=== PATIENT | female | born 1970 | race Caucasian/White ===

== ENCOUNTER 2017-10-27 19:48 | Emergency (ER) | payer MEDICARE, MEDICAID ==
[2017-10-27] MEDS ORDERED: hydrALAZINE 20 MG/ML SDV IVPUSH ONE (20:26)
[2017-10-27 20:30] LABS: CHLORIDE,CL 106 mEq/L (98-106); SODIUM,NA 142 mEq/L (136-145)
--- NOTE | 2017-10-27 20:31 | EDM.PDOC ---
ED HPI GENERAL MEDICAL PROBLEM - General Chief Complaint: Abdominal Pain Stated Complaint: DIARRHEA, ABDOMINAL PAIN Time Seen by Provider: 10/27/17 20:00 Source of Information: Reports: Patient History Limitations: Reports: No Limitations - History of Present Illness INITIAL COMMENTS - FREE TEXT/NARRATIVE: Ailyn is a 47 year old female, with PMH of type II DM, COPD, alcoholism, hypertension, hyperlipidemia, who presents to the ER with c/o diarrhea and abdominal pain. She reports that "all weekend" she had "explosive diarrhea." She reports now her stools have become "tarry looking." She reports she has had a decreased appetite, but isn't necessarily nauseated. Denies any vomiting. Reports her abdominal pain is located more in her right lower quadrants. She reports that what brought her to the ER was when the pain started to radiate to her back. She reports she has felt a pain like this in the past "when she had kidney failure." Denies any fever, chills. Denies any history of kidney stones. Denies any urinary symptoms. Onset Date: 10/24/17 Duration: Getting Worse, Intermittent Location: Reports: Abdomen Improves with: Reports: None Associated Symptoms: Reports: Loss of Appetite, Nausea/Vomiting. Denies: Confusion, Chest Pain, Cough, cough w sputum, Diaphoresis, Fever/Chills, Headaches, Malaise, Rash, Seizure, Shortness of Breath, Syncope, Weakness Abdominal Pain Score (Numeric/FACES): 7 - Related Data Allergies Allergy/AdvReac Type Severity Reaction Status Date / Time No Known Allergies Allergy Verified 10/27/17 19:57 Home Meds: Home Meds Aspirin [Adult Low Dose Aspirin EC] 81 mg PO DAILY 10/27/17 [History] Cefuroxime Axetil [Cefuroxime] 250 mg PO BID 10 Days #20 tablet 10/27/17 [Rx] Insulin Glarg,Human.Rec.Analog [Lantus] 27 units SUBCUT BEDTIME 10/27/17 [ History] Lisinopril/Hydrochlorothiazide [Lisinopril-Hctz 20-25 mg Tab] 1 each PO DAILY 5 Days #5 tablet 10/27/17 [Rx] amLODIPine Besylate [Amlodipine Besylate] 20 mg PO DAILY 5 Days #5 tablet [Rx] atorvaSTATin [Lipitor] 10 mg PO BEDTIME 10/27/17 [History] metFORMIN HCl [Metformin HCl] 1,000 mg PO BID 10/27/17 [History] Past Medical History Cardiovascular History: Reports: High Cholesterol, Hypertension Neurological History: Reports: CVA Psychiatric History: Reports: Depression Endocrine/Metabolic History: Reports: Diabetes, Type II - Past Surgical History GI Surgical History: Reports: Colonoscopy Female Surgical History: Reports: Hysterectomy, Oophorectomy Social & Family History - Tobacco Use Smoking Status *Q: Current Every Day Smoker Years of Tobacco use: 37 Packs/Tins Daily: 2 - Caffeine Use Caffeine Use: Reports: Coffee - Recreational Drug Use Recreational Drug Use: No ED ROS GENERAL - Review of Systems Review Of Systems: See Below Constitutional: Reports: Fatigue. Denies: Fever, Chills, Malaise, Weakness Respiratory: Reports: No Symptoms Cardiovascular: Reports: No Symptoms GI/Abdominal: Reports: Abdominal Pain, Black Stool, Diarrhea, Decreased Appetite , Distension, Flatus, Nausea. Denies: Bloody Stool, Constipation, Hematemesis, Hematochezia, Stool Incontinence, Vomiting : Reports: No Symptoms. Denies: Dysuria, Flank Pain, Hematuria, Urgency, Urinary Retention Musculoskeletal: Reports: Back Pain Skin: Reports: No Symptoms Neurological: Reports: No Symptoms Psychiatric: Reports: No Symptoms Hematologic/Lymphatic: Reports: No Symptoms Immunologic: Reports: No Symptoms ED EXAM, GI/ABD - Physical Exam Exam: See Below Exam Limited By: No Limitations General Appearance: Alert, WD/WN, No Apparent Distress Head: Atraumatic, Normocephalic Respiratory/Chest: No Respiratory Distress, Lungs Clear, No Accessory Muscle Use , Chest Non-Tender, Decreased Breath Sounds Cardiovascular: Normal Peripheral Pulses, Regular Rate, Rhythm, No Edema, No Gallop, No JVD, No Murmur, No Rub GI/Abdominal Exam: Normal Bowel Sounds, Soft, Distended, Tender. No: Guarding, Rigid, Rebound Back Exam: Normal Inspection, Full Range of Motion. No: CVA Tenderness (L), CVA Tenderness (R) Extremities: Normal Inspection, Normal Range of Motion, Non-Tender, Normal Capillary Refill, No Pedal Edema Neurological: Alert, Oriented, CN II-XII Intact, Normal Cognition, Normal Gait, Normal Reflexes, No Motor/Sensory Deficits Psychiatric: Anxious Skin Exam: Warm, Dry, Intact, Normal Color, No Rash Lymphatic: No Adenopathy Course - Vital Signs Last Recorded V/S: Last Vital Signs Temp 97.9 F 10/27/17 19:49 Pulse 97 10/27/17 23:00 Resp 16 10/27/17 19:49 BP 148/90 H 10/27/17 23:00 Pulse Ox 98 10/27/17 19:49 - Orders/Labs/Meds Labs: Laboratory Tests 10/27/17 10/27/17 10/27/17 Range/Units 20:00 20:10 20:10 WBC 6.5 (5.0-10.0) 10^3/uL RBC 4.55 (4.00-5.50) 10^6/uL Hgb 14.4 (12.0-16.0) g/dL Hct 40.8 (37.0-47.0) % MCV 89.7 (82.0-94.0) fL MCH 31.6 (27.0-32.0) pg MCHC 35.3 (33.0-38.0) g/dL RDW Coeff of Marcello 11.9 (11.0-15.0) % Plt Count 253 (150-400) 10^3/uL Neut % (Auto) 57.4 (35-85) % Lymph % (Auto) 33.3 (10-55) % Mills % (Auto) 7.0 (0-16) % Eos % (Auto) 2.0 (0-5) % Baso % (Auto) 0.3 (0-3) % Neut # (Auto) 3.71 (1.80-7.00) 10^3/uL Lymph # (Auto) 2.15 (1.00-4.80) 10^3/uL Mills # (Auto) 0.45 (0.00-0.80) 10^3/uL Eos # (Auto) 0.13 (0.00-0.45) 10^3/uL Baso # (Auto) 0.02 10^3/uL Sodium (136-145) mEq/L Potassium (3.5-5.0) mEq/L Chloride (98-106) mEq/L Carbon Dioxide (21-32) mmol/L BUN (7-18) mg/dL Creatinine (0.6-1.0) mg/dL Est Cr Clr Drug Dosing mL/min Estimated GFR (MDRD) (>=60) mL/min Glucose (75-99) mg/dL Calcium (8.4-10.1) mg/dL Total Bilirubin (0.0-1.0) mg/dL AST (15-37) U/L ALT (12-78) U/L Alkaline Phosphatase (46-116) U/L C-Reactive Protein 4.7 H (0.2-0.8) mg/dL Total Protein (6.4-8.2) g/dL Albumin (3.4-5.0) g/dL Amylase (25-115) U/L Urine Color Light yellow (YELLOW) Urine Appearance Clear (CLEAR) Urine pH 5.5 (4.5-8.0) Ur Specific [place] <= 1.005 (1.003-1.020) Urine Protein Negative (NEGATIVE) mg/dL Urine Glucose (UA) Negative (NEGATIVE) mg/dL Urine Ketones Negative (NEGATIVE) mg/dL Urine Occult Blood Negative (NEGATIVE) Urine Nitrite Negative (NEGATIVE) Urine Bilirubin Negative (NEGATIVE) Urine Urobilinogen 0.2 (0.2-1.0) EU/dL Ur Leukocyte Esterase Small H (NEGATIVE) Urine RBC Not seen (0-5) /HPF Urine WBC Not seen (0-5) /HPF 10/27/17 Range/Units 20:10 WBC (5.0-10.0) 10^3/uL RBC (4.00-5.50) 10^6/uL Hgb (12.0-16.0) g/dL Hct (37.0-47.0) % MCV (82.0-94.0) fL MCH (27.0-32.0) pg MCHC (33.0-38.0) g/dL RDW Coeff of Marcello (11.0-15.0) % Plt Count (150-400) 10^3/uL Neut % (Auto) (35-85) % Lymph % (Auto) (10-55) % [place] % (Auto) (0-16) % Eos % (Auto) (0-5) % Baso % (Auto) (0-3) % Neut # (Auto) (1.80-7.00) 10^3/uL Lymph # (Auto) (1.00-4.80) 10^3/uL Mills # (Auto) (0.00-0.80) 10^3/uL Eos # (Auto) (0.00-0.45) 10^3/uL Baso # (Auto) 10^3/uL Sodium 142 (136-145) mEq/L Potassium 3.2 L (3.5-5.0) mEq/L Chloride 106 (98-106) mEq/L Carbon Dioxide 24 (21-32) mmol/L BUN 4 L (7-18) mg/dL Creatinine 0.7 (0.6-1.0) mg/dL Est Cr Clr Drug Dosing 72.90 mL/min Estimated GFR (MDRD) > 60 (>=60) mL/min Glucose 133 H (75-99) mg/dL Calcium 8.7 (8.4-10.1) mg/dL Total Bilirubin 0.3 (0.0-1.0) mg/dL AST 14 L (15-37) U/L ALT 21 (12-78) U/L Alkaline Phosphatase 116 (46-116) U/L C-Reactive Protein (0.2-0.8) mg/dL Total Protein 7.1 (6.4-8.2) g/dL Albumin 3.5 (3.4-5.0) g/dL Amylase 42 (25-115) U/L Urine Color (YELLOW) Urine Appearance (CLEAR) Urine pH (4.5-8.0) Ur Specific [place] (1.003-1.020) Urine Protein (NEGATIVE) mg/dL Urine Glucose (UA) (NEGATIVE) mg/dL Urine Ketones (NEGATIVE) mg/dL Urine Occult Blood (NEGATIVE) Urine Nitrite (NEGATIVE) Urine Bilirubin (NEGATIVE) Urine Urobilinogen (0.2-1.0) EU/dL Ur Leukocyte Esterase (NEGATIVE) Urine RBC (0-5) /HPF Urine WBC (0-5) /HPF Meds: Medications Discontinued Medications Generic Name Dose Route Start Last Admin Trade Name Freq PRN Reason Stop Dose Admin Ceftriaxone Sodium 1 gm 10/27/17 20:45 10/27/17 20:48 Rocephin IVPUSH 1 gm Q24H GIOVANNA Administration Hydralazine HCl 20 mg 10/27/17 20:26 10/27/17 20:55 Apresoline IVPUSH 10/27/17 20:27 Not Given ONETIME ONE Sodium Chloride 1,000 mls @ 999 mls/hr 10/27/17 20:37 10/27/17 20:48 Normal Saline IV 10/27/17 21:37 999 mls/hr .BOLUS ONE Administration Ketorolac Tromethamine 30 mg 10/27/17 21:44 10/27/17 21:48 Toradol IVPUSH 10/27/17 21:45 30 mg ONETIME ONE Administration Metoprolol Tartrate 5 mg 10/27/17 20:34 10/27/17 20:47 Lopressor IVPUSH 10/27/17 20:35 5 mg ONETIME ONE Administration - Re-Assessments/Exams Free Text/Narrative Re-Assessment/Exam: CT of abdomen/pelvis reveals inflammation around umbilical hernia and mesenteric lymph nodes. No other acute findings. Departure - Departure Time of Disposition: 22:55 Disposition: Home, Self-Care 01 Condition: Good Clinical Impression: Gastroenteritis, Acute mesenteric adenitis Diarrhea Qualifiers: Diarrhea type: unspecified type Qualified Code(s): R19.7 - Diarrhea, unspecified - Discharge Information Prescriptions: amLODIPine Besylate [Amlodipine Besylate] 20 mg PO DAILY 5 Days #5 tablet Cefuroxime Axetil [Cefuroxime] 250 mg PO BID 10 Days #20 tablet Lisinopril/Hydrochlorothiazide [Lisinopril-Hctz 20-25 mg Tab] 1 each PO DAILY 5 Days #5 tablet Instructions: Diarrhea, Adult, Viral Gastroenteritis, Adult, [id number], Food Choices to Help Relieve Diarrhea, Adult Referrals: PCP,None [Primary Care Provider] - Forms: ED Department Discharge Additional Instructions: CT abdomen normal except some inflammation around umbilical hernia. Antibiotic twice daily x 10 days. Take with food. Push fluids [place] diet until diarrhea resolves Tylenol as needed for pain Ice/heat to areas of pain 5 days worth of blood pressure medications sent to [facility] as patient has not been taking her BP medications as she ran out and is here visiting family Follow up with PCP when you return home
[2017-10-27] MEDS ORDERED: Metoprolol Tartrate 5 MG/5 ML SDV IVPUSH ONE (20:34)
[2017-10-27] MEDS ORDERED: Sodium Chloride 0.9% 1,000 ML IV ONE (20:37)
[2017-10-27] MEDS ORDERED: cefTRIAXone 1 GM Vial IVPUSH SCH (20:45)
[2017-10-27] MEDS ORDERED: Ketorolac 30 MG/ML SDV IVPUSH ONE (21:44)
== END 2017-10-27 23:14 | disposition home or self-care (01) ==
LOC: CC.ED 19:48
DX: K52.9 Noninfective gastroenteritis and colitis, unspecified (principal); I88.0 Nonspecific mesenteric lymphadenitis; E11.9 Type 2 diabetes mellitus without complications; I10 Essential (primary) hypertension; E78.00 Pure hypercholesterolemia, unspecified; F32.9 Major depressive disorder, single episode, unspecified; F17.210 Nicotine dependence, cigarettes, uncomplicated; Z79.82 Long term (current) use of aspirin; Z79.4 Long term (current) use of insulin; Z79.899 Other long term (current) drug therapy
CPT/HCPCS: 36415; 74177; 80053; 81001; 82150; 85025; 86140; 87086; 96361; 96374; 96375; 99284; J0696; J1885; J3490; J7030; Q9967

== ENCOUNTER → 2018-10-30 | Day surgery (SDC) | payer MEDICARE, MEDICAID ==
[~2018-10-30] MED LIST: Lactated Ringers 1,000 ML IV SCH; Propofol 200 MG/20 ML SDV IV ONE
--- NOTE | 2018-10-30 13:13 | OR ---
DATE OF OPERATION: 10/30/2018 PREOPERATIVE DIAGNOSIS: FAMILY HISTORY OF COLON CANCER. POSTOPERATIVE DIAGNOSIS: 1. FAMILY HISTORY OF COLON CANCER. 2. SIGMOID DIVERTICULOSIS. 3. FOCAL COLITIS, HEPATIC FLEXURE. SURGEON: Ryder Parham MD PROCEDURE: FULL-LENGTH COLONOSCOPY WITH BIOPSY X2. ANESTHESIA: MAC via TYPE PROOF REPRODUCER. COMPLICATIONS: None. SPECIMEN: Biopsy x2, hepatic flexure. FINDINGS: 1. Full-length colonoscopy. 2. Focal colitis, hepatic flexure. 3. Minimal sigmoid diverticulosis. RECOMMENDATIONS: Followup colonoscopy every 5 years. INDICATIONS: The patient has a family history of colon cancer in her father. She was sent for a screening colonoscopy. DESCRIPTION OF PROCEDURE: The patient was prepped and draped, placed in the left lateral decubitus position. A lubricated Olympus colonoscope was inserted and safely and easily advanced to the cecum. Direct visualization of the ileocecal valve and appendiceal orifice was accomplished. The bowel prep was adequate. Upon withdrawal of the scope, cecum and ascending colon were benign. Right at the hepatic flexure, the patient had a small focal area of colitis. No signs of ulceration or bleeding. We did do 2 biopsies of it. It was focal at that spot and did not extend into the transverse or ascending colon. The rest of the transverse and descending areas were unremarkable. The patient did have a few scattered diverticula in the sigmoid colon without inflammatory change. I found no signs of any polyps, mass, ulceration, or bleeding sites. No vascular abnormalities. The rectal vault was unremarkable. Retroflexion of the scope in the rectum showed no perianal lesions. Air was suctioned, scope removed without complication. NEVILLE/GHAZAL /[id number]
== END ==
LOC: CC.SDS 09:10
PROVIDERS: ATTEND Family Medicine
DX: Z12.11 Encounter for screening for malignant neoplasm of colon (principal); K57.30 Diverticulosis of large intestine without perforation or abscess without bleeding; K52.9 Noninfective gastroenteritis and colitis, unspecified; J44.9 Chronic obstructive pulmonary disease, unspecified; F17.200 Nicotine dependence, unspecified, uncomplicated; I10 Essential (primary) hypertension; G47.30 Sleep apnea, unspecified; E78.5 Hyperlipidemia, unspecified; G43.909 Migraine, unspecified, not intractable, without status migrainosus; Z86.73 Personal history of transient ischemic attack (TIA), and cerebral infarction without residual deficits; Z80.0 Family history of malignant neoplasm of digestive organs
CPT/HCPCS: J2704; J7120

== ENCOUNTER 2019-09-28 09:15 | Emergency (ER) | payer MEDICARE, MEDICAID ==
[2019-09-28 09:28] VITALS: BP 149/77; PULSE 98
--- NOTE | 2019-09-28 09:55 | EDM.PDOC ---
ED HPI GENERAL MEDICAL PROBLEM - General Chief Complaint: General Stated Complaint: FELL LAST NIGHT/GROIN HURTING/RT SHLDR NUMB Time Seen by Provider: 09/28/19 09:55 Source of Information: Reports: Patient History Limitations: Reports: No Limitations - History of Present Illness INITIAL COMMENTS - FREE TEXT/NARRATIVE: Ailyn is a 49 year old female who presents to the Ed with c/o tailbone pain. SHe reports that she fell last evening at her friends house, landing on the right side of her body. She reports throughout the night she has been in excruciating pain. She reports she is unable to sit down due to tailbone pain. She is ambulatory at time of presentation. Denies any loss of bowel/bladder. She reports she also feels she "jammed up" her shoulder. Has intermittent numbness of her RUE. Denies any significant neck pain. No other complaints. She rates pain 10/10. Has been doing Tylenol/ibuprofen at home, as well as ice/heat without relief. Onset Date: 09/27/19 Duration: Constant Location: Reports: Other (low back, tailbone) Quality: Reports: Sharp Severity: Severe Improves with: Reports: None Worsens with: Reports: Other (sitting) Associated Symptoms: Reports: No Other Symptoms Treatments UNIT NURSE: Reports: Acetaminophen, Cold Therapy, Heat Therapy, NSAIDS - Related Data Allergies Allergy/AdvReac Type Severity Reaction Status Date / Time No Known Allergies Allergy Verified 09/28/19 09:29 Home Meds: Home Meds Lisinopril/Hydrochlorothiazide [Lisinopril-Hctz 20-25 mg Tab] 1 each PO DAILY 5 Days #5 tablet 10/27/17 [Rx] metFORMIN HCl [Metformin HCl] 500 mg PO DAILY 10/27/17 [History] Acetaminophen [Tylenol Extra Strength] 500 mg PO Q6H PRN 10/28/18 [History] Ibuprofen 200 mg PO Q6H PRN 10/28/18 [History] Hydrocodone/Acetaminophen [[place] 5-325 Tablet] 1 - 2 tab PO Q4H PRN #30 tablet 09/28/19 [Rx] Past Medical History HEENT History: Reports: Other (See Below) Other HEENT History: sinus surgery-deviated septum Cardiovascular History: Reports: High Cholesterol, Hypertension Respiratory History: Reports: Bronchitis, Recurrent, COPD Other Respiratory History: chronic bronchitis Gastrointestinal History: Reports: Other (See Below) Other Gastrointestinal History: hernia repairs-mesh implant OCCUPATIONAL THERAPIST PER DIEM History: Reports: Endometriosis Neurological History: Reports: CVA Psychiatric History: Reports: Depression Endocrine/Metabolic History: Reports: Diabetes, Type II - Infectious Disease History Infectious Disease History: Reports: C-Difficile, MRSA - Past Surgical History HEENT Surgical History: Reports: Tonsillectomy GI Surgical History: Reports: Colonoscopy, Hernia Repair/Other Female Surgical History: Reports: Hysterectomy, Oophorectomy Social & Family History - Tobacco Use Smoking Status *Q: Current Every Day Smoker Years of Tobacco use: 30 Packs/Tins Daily: 1.5 - Caffeine Use Caffeine Use: Reports: Coffee - Recreational Drug Use Recreational Drug Use: Yes Drug Use in Last 12 Months: Yes Recreational Drug Type: Reports: Marijuana/Hashish, Other (see below) Other Recreational Drug Type: CBD Recreational Drug Use Frequency: Not Used In Over 1 Month ED ROS GENERAL - Review of Systems Review Of Systems: Comprehensive ROS is negative, except as noted in HPI. ED EXAM, GENERAL - Physical Exam Exam: See Below Exam Limited By: No Limitations General Appearance: Alert, WD/WN, Anxious, Moderate Distress Peripheral Pulses: 2+: Radial (L), Radial (R), Posterior Tibial (L), Posterior Tibial (R), Dorsalis Pedis (L), Dorsalis Pedis (R) GI/Abdominal: Normal Bowel Sounds, Soft, Non-Tender, No Organomegaly, No Distention, No Abnormal Bruit, No Mass Back Exam: Decreased Range of Motion, Vertebral Tenderness (L3-L5, sacrum) Extremities: Normal Inspection, Normal Range of Motion, Non-Tender, Normal Capillary Refill, No Pedal Edema Neurological: Alert, Oriented, CN II-XII Intact, Normal Cognition, Normal Gait, Normal Reflexes, No Motor/Sensory Deficits Psychiatric: Anxious Skin Exam: Warm, Dry, Intact, Normal Color, No Rash Course - Vital Signs Last Recorded V/S: Last Vital Signs Temp 98 F 09/28/19 09:23 Pulse 98 09/28/19 09:23 Resp 18 09/28/19 09:23 BP 149/77 H 09/28/19 09:23 Pulse Ox 97 09/28/19 09:23 - Orders/Labs/Meds Orders: Active Orders 24 hr Category Date Time Status Cervical Spine 2V or 3V [CR] Stat Exams 09/28/19 10:11 Taken Hip Min 2V or 3V Rt [CR] Stat Exams 09/28/19 10:14 Taken Lumbar Spine 2 or 3V [CR] Stat Exams 09/28/19 10:10 Taken Labs: Laboratory Tests 09/28/19 09/28/19 Range/Units 10:02 10:02 Urine Color Yellow (YELLOW) Urine Appearance Clear (CLEAR) Urine pH 6.5 (4.5-8.0) Ur Specific [place] 1.010 (1.003-1.020) Urine Protein Negative (NEGATIVE) mg/dL Urine Glucose (UA) Negative (NEGATIVE) mg/dL Urine Ketones Negative (NEGATIVE) mg/dL Urine Occult Blood Trace-intact H (NEGATIVE) Urine Nitrite Negative (NEGATIVE) Urine Bilirubin Negative (NEGATIVE) Urine Urobilinogen 0.2 (0.2-1.0) EU/dL Ur Leukocyte Esterase Small H (NEGATIVE) Urine RBC Not seen (0-5) /HPF Urine WBC 5-10 H (0-5) /HPF Urinalysis Comment Urine Opiates Screen Negative (NEGATIVE) Ur Oxycodone Screen Negative (NEGATIVE) Urine Methadone Screen Negative (NEGATIVE) Ur Barbiturates Screen Negative (NEGATIVE) U Tricyclic Antidepress Negative (NEGATIVE) Ur Phencyclidine Scrn Negative (NEGATIVE) Ur Amphetamine Screen Negative (NEGATIVE) U Methamphetamines Scrn Negative (NEGATIVE) Urine MDMA Screen Negative (NEGATIVE) U Benzodiazepines Scrn Negative (NEGATIVE) Urine Cocaine Screen Negative (NEGATIVE) U Marijuana (THC) Screen Positive H (NEGATIVE) Meds: Medications Discontinued Medications Generic Name Dose Route Start Last Admin Trade Name Reza PRN Reason Stop Dose Admin Hydrocodone Bitart/Acetaminophen 1 tab 09/28/19 10:51 09/28/19 10:53 [place] 325-5 Mg PO 09/28/19 10:52 1 tab ONETIME ONE Administration Hydrocodone Bitart/Acetaminophen Confirm 09/28/19 10:36 09/28/19 10:55 [place] 325-5 Mg Administered 09/28/19 10:37 Not Given Dose 1 tab .ROUTE .STK-MED ONE Fentanyl 50 mcg 09/28/19 10:02 09/28/19 10:14 Sublimaze IM 09/28/19 10:03 50 mcg ONETIME ONE Administration - Re-Assessments/Exams Free Text/Narrative Re-Assessment/Exam: Xrays negative except appears to have hairline fracture of coccyx, likely cause of patients significant pain. Departure - Departure Time of Disposition: 11:30 Disposition: Home, Self-Care 01 Clinical Impression: Fracture of coccyx, initial encounter for closed fracture - Discharge Information *PRESCRIPTION DRUG MONITORING PROGRAM REVIEWED*: Not Applicable *COPY OF PRESCRIPTION DRUG MONITORING REPORT IN PATIENT CONNER: Not Applicable Prescriptions: Hydrocodone/Acetaminophen [[place] 5-325 Tablet] 1 - 2 tab PO Q4H PRN #30 tablet PRN Reason: Pain Instructions: Tailbone Injury, [id number] Referrals: Marcia Elena PA-C [Primary Care Provider] - Forms: ED Department Discharge Additional Instructions: - [place] 1-2 tablets every 4 hours as needed. Use Tylenol or ibuprofen for less severe pain. - Ice/heat to affected area - Activity as tolerated - Recommend donut to relieve pressure from coccyx - Follow up with PCP for recheck if symptoms worsen or do not improve Sepsis Event Note - Evaluation Sepsis Screening Result: No Definite Risk - Focused Exam Vital Signs: Vital Signs Temp Pulse Resp BP Pulse Ox 09/28/19 09:23 98 F 98 18 149/77 H 97 Date Exam was Performed: 09/28/19 Time Exam was Performed: 16:51 - My Orders Last 24 Hours: My Active Orders 09/28/19 10:10 Lumbar Spine 2 or 3V [CR] Stat 09/28/19 10:11 Cervical Spine 2V or 3V [CR] Stat 09/28/19 10:14 Hip Min 2V or 3V Rt [CR] Stat - Assessment/Plan Last 24 Hours: My Active Orders 09/28/19 10:10 Lumbar Spine 2 or 3V [CR] Stat 09/28/19 10:11 Cervical Spine 2V or 3V [CR] Stat 09/28/19 10:14 Hip Min 2V or 3V Rt [CR] Stat Plan: Patient screaming out in pain throughout ED visit. Was initially given 50 mcg fentanyl. Patient reports no relief of pain. Was then given 1 tab [place]. Did report some relief of pain as long as she wasn't sitting. Per my review, xrays negative except hairline fracture of coccyx. Discussed with patient that there is not a lot that can be done for this type of injury other than pain management and avoidance of pressure on area. Patient discharged home in satisfactory condition.
[2019-09-28] MEDS ORDERED: fentaNYL 100 MCG/2 ML SDV IM ONE (10:02)
[2019-09-28] MEDS ORDERED: Acetaminophen/HYDROcodone 325-5 MG Tab ONE (10:36)
[2019-09-28] MEDS ORDERED: Acetaminophen/HYDROcodone 325-5 MG Tab PO ONE (10:51)
== END 2019-09-28 11:18 | disposition home or self-care (01) ==
LOC: SUPCPDRO 09:15 → CC.ED 09:15
DX: S32.2XXA Fracture of coccyx, initial encounter for closed fracture (principal); I10 Essential (primary) hypertension; E11.9 Type 2 diabetes mellitus without complications; E78.00 Pure hypercholesterolemia, unspecified; J44.9 Chronic obstructive pulmonary disease, unspecified; Z86.73 Personal history of transient ischemic attack (TIA), and cerebral infarction without residual deficits; F17.210 Nicotine dependence, cigarettes, uncomplicated; Z79.84 Long term (current) use of oral hypoglycemic drugs; Z79.899 Other long term (current) drug therapy; W19.XXXA Unspecified fall, initial encounter; Y92.009 Unspecified place in unspecified non-institutional (private) residence as the place of occurrence of the external cause
CPT/HCPCS: 72040; 72100; 80305-QW; 81001; 96372; 99283; 99284-25; A9270-GY; J3010